=== PATIENT | female | born 1985 | race African-American/Black ===

== ENCOUNTER 2024-10-23 17:01 | Emergency (ER) | payer OTHER ==
[~2024-10-23] VITALS: Ht 157.5 cm; Wt 50.0 kg
[2024-10-23 17:15] VITALS: O2SAT 100
[2024-10-23] MEDS ORDERED: IBUP-2030 MT (17:54)
[2024-10-23] MEDS ORDERED: AMOX1TAB16 MT (17:54)
[2024-10-23] MEDS: KETOROLAC 30MG/ML VIAL IM ONE (17:55)
[2024-10-23 18:19] VITALS: BP 114/78; PULSE 82; RESP 18; TEMP 37; O2SAT 99
== END 2024-10-23 18:20 | disposition home or self-care (01) ==
LOC: ER 17:01
DX: K01.1 Impacted teeth (principal); Z90.89 Acquired absence of other organs
CPT/HCPCS: 99283; 96372; J1885